=== PATIENT | female | born 1990 | race Two or more races ===

== ENCOUNTER 2018-01-08 12:57 | Emergency (ER) | payer MEDICAID, OTHER ==
[2018-01-08 13:08] VITALS: BP 146/84
[2018-01-08] MEDS ORDERED: DIPHENHYDRAMINE HCL 50 MG CAPSULE PO ONE (13:23)
[2018-01-08] MEDS ORDERED: KETOROLAC TROMETHAMINE INJ/PF 30 MG/1 ML SDV IM ONE (13:23)
[2018-01-08] MEDS ORDERED: PROCHLORPERAZINE EDISYLATE INJ 10 MG/2 ML VIAL IM ONE (13:23)
--- NOTE | 2018-01-08 13:32 | ER Document Report ---
HPI - HPI Pain Level: 2 Notes: Patient is a 27-year-old female with a history of chronic migraines who presents to the ED complaining of a migraine 1 day that is just like her typical migraines. Patient states that she will have light sensitivity and nausea associated which upsets her stomach. Patient states that she has been evaluated by her primary care doctor for her migraines and was told that she just needs to drink more water. Patient states that she has otherwise been eating and drinking without difficulties. She is urinating normally and having normal bowel movements. Patient states that she does feel like she has some acid reflux, but does not take medicine for it. She denies any IV drug use. Denies any drug allergies. Denies any fever, head injury, neck pain, changes in vision/speech/mentation/hearing, URI, sore throat, chest pain, palpitations, syncope, cough, shortness of breath, wheeze, dyspnea, abdominal pain, nausea/ vomiting/diarrhea, urinary retention, dysuria, hematuria, loss of control of bowel or bladder, numbness/tingling, muscle paralysis/weakness, or rash. - ROS Systems Reviewed and Negative: Yes All other systems reviewed and negative Past Medical History - Social History Smoking Status: Unknown if Ever Smoked Family History: Reviewed & Not Pertinent Vertical Provider Document - CONSTITUTIONAL Agree With Documented VS: Yes Notes: PHYSICAL EXAMINATION: GENERAL: Well-appearing, well-nourished and in no acute distress. A&Ox4. Answers questions appropriately. HEAD: Atraumatic, normocephalic. Non-tender. No becker sign EYES: Pupils equal round and reactive to light, extraocular movements intact, sclera anicteric, conjunctiva are normal. No raccoon eyes/entrapment. No nystagmus. ENT: Nares patent and without discharge. oropharynx clear without exudates. No tonsilar hypertrophy or erythema. Moist mucous membranes. No sinus tenderness. NECK: Normal range of motion, supple without lymphadenopathy. No rigidity. No midline tenderness. Spurling negative. LUNGS: Breath sounds clear to auscultation bilaterally and equal. No wheezes rales or rhonchi. HEART: Regular rate and rhythm without murmurs, rubs, gallops. ABDOMEN: Soft, nontender, nondistended abdomen. No guarding, no rebound. No masses appreciated. Normal bowel sounds present. No CVA tenderness bilaterally. Musculoskeletal: Ext b/l: FROM to passive/active. Strength 5+/5. No deficits noted. No bony tenderness of extremities. Extremities: No cyanosis, clubbing, or edema b/l. Peripheral pulses 2+. Capillary refill less than 2 seconds. NEUROLOGICAL: NIH 0. GCS 15. Cranial nerves grossly intact. Normal speech, normal gait. Normal sensory, motor exams. Reflexes 2+ b/l. JOSI's negative. Pronator drift negative. Heel/browning, finger/nose wnl. PSYCH: Normal mood, normal affect. SKIN: Warm, Dry, normal turgor, no rashes or lesions noted. - INFECTION CONTROL TRAVEL OUTSIDE OF THE [place] IN LAST 30 DAYS: No Course - Re-evaluation Re-evalutation: 01/08/18 14:21 Patient is an afebrile, well-hydrated, 27-year-old female who presents to the ED with a headache, suspect typical migraine for her, and suspicions of acid reflux based on her historical report. Vitals are acceptable. PE is otherwise unremarkable. NIH 0, GCS 15, cranial nerves grossly intact. Patient has no significant tachycardia, tachypnea, or hypoxia. She is tolerating p.o. without difficulties. She is playing on her phone without any discomfort as well. Patient was given Toradol and Compazine which improved her headache. Patient states that she is feeling much better. Patient is requesting a work note as well. No other labs or imaging warranted at this time based on H&P. Low suspicion for any acute glaucoma, temporal arteritis, meningitis, intracranial hemorrhage, ischemic stroke, or fracture at this time. Patient is aware that this condition can change from initial presentation and that she needs to monitor symptoms closely for any acute changes. I will send her home with a prescription for Carafate and omeprazole. Recheck with your PCM in 3-5 days. Consider consult with neurology. Return to the ED with any worsening/ concerning symptoms otherwise as reviewed discharge. Patient is in agreement. - Vital Signs Vital signs: Temp Pulse Resp BP Pulse Ox 98.2 F 72 18 146/84 H 99 01/08/18 13:06 01/08/18 13:06 01/08/18 13:06 01/08/18 13:06 01/08/18 13:06 Discharge - Discharge Clinical Impression: Headache Qualifiers: Headache type: unspecified Headache chronicity pattern: acute headache Intractability: not intractable Qualified Code(s): R51 - Headache Condition: Stable Disposition: HOME, SELF-CARE Instructions: Headache ([facility]) Additional Instructions: Rest, Ice Tylenol/ibuprofen as needed Light stretches daily Strength exercises as able Moist heat and massage may help F/u with your PCP in 3-5 days for a recheck Consider consult(s) with Neurology for ongoing/worsening symptoms Return to the ED with any worsening symptoms and/or development of fever, headache, changes in behavior/mentation/vision/speech, chest pain, palpitations , syncope, shortness of breath, trouble breathing, abdominal pain, n/v/d, blood in stool/urine, loss of control of bowel/bladder, urinary retention, muscle weakness/paralysis, saddle anesthesia, numbness/tingling, or other worsening symptoms that are concerning to you. Prescriptions: Omeprazole 20 mg PO DAILY #30 tablet. Sucralfate [Carafate] 1 gm PO QID PRN #420 ml PRN Reason: Forms: Elevated Blood Pressure, Return to Work Referrals: ADRY CONWAY MD [EMERIT[facility]] - Follow up as needed
== END 2018-01-08 14:30 | disposition home or self-care (01) ==
LOC: ER 12:57
DX: R51 Headache (principal)
CPT/HCPCS: 99283; 96372; J1885; J0780

== ENCOUNTER 2018-02-23 10:10 | Emergency (ER) | payer MEDICAID ==
[2018-02-23 10:22] VITALS: BP 124/83
--- NOTE | 2018-02-23 10:43 | ER Document Report ---
ED Flu Like - General Mode of Arrival: Ambulatory Information source: Patient TRAVEL OUTSIDE OF THE [place] IN LAST 30 DAYS: No - General Chief Complaint: Flu Symptoms Stated Complaint: FLU SYMPTOMS Time Seen by Provider: 02/23/18 10:35 Notes: Patient is a 27-year-old female who presents to the emergency department today with complaints of a headache for the last 3 days with associated generalized weakness, generalized body aches, subjective fevers, nasal congestion, and vomiting 1. Patient states she took Excedrin Migraine prior to arrival. Patient denies any sore throat, abdominal pain, or diarrhea. (NEHEMIAS GUERRA) - Related Data Allergies/Adverse Reactions: No Known Allergies Allergy (Verified 02/23/18 10:12) Past Medical History - General Information source: Patient - Social History Smoking Status: Never Smoker Cigarette use (# per day): No Chew tobacco use (# tins/day): No Frequency of alcohol use: None Drug Abuse: None Lives with: Family Family History: Reviewed & Not Pertinent Patient has suicidal ideation: No Patient has homicidal ideation: No Neurological Medical History: Reports: Hx Migraine Surgical Hx: Negative Review of Systems - Review of Systems Constitutional: See HPI, Weakness EENT: See HPI, Nose congestion, Nose discharge, Sinus pressure. denies: Throat pain Cardiovascular: No symptoms reported Respiratory: No symptoms reported Gastrointestinal: denies: Abdominal pain, Diarrhea Genitourinary: No symptoms reported Female Genitourinary: No symptoms reported Musculoskeletal: See HPI, Other - generlized body aches Skin: No symptoms reported Hematologic/Lymphatic: No symptoms reported Neurological/Psychological: See HPI, Headaches -: Yes All other systems reviewed and negative Physical Exam - Vital signs Vitals: Temp Pulse Resp BP Pulse Ox 98.9 F 114 H 14 124/83 97 02/23/18 10:21 02/23/18 10:21 02/23/18 10:21 02/23/18 10:21 02/23/18 10:21 - Notes Notes: PHYSICAL EXAM GENERAL: Alert, interacts well. No acute distress. HEAD: Normocephalic, atraumatic. Tenderness with percussion of frontal sinuses bilaterally. EYES: Pupils equal, round, and reactive to light. Extraocular movements intact. ENT: Oral mucosa moist, tongue midline. Neck is supple. Nares patent, no nasal septal hematoma, TM's intact. Injected posterior oropharynx. NECK: Full range of motion. Supple. Trachea midline. LUNGS: Clear to auscultation bilaterally, no wheezes, rales, or rhonchi. No respiratory distress. HEART: Slightly tachycardic, regular rhythm. No murmurs, gallops, or rubs. ABDOMEN: Soft, non-tender. Non-distended. Bowel sounds present in all 4 quadrants. No guarding, rigidity, or rebound. EXTREMITIES: Moves all 4 extremities spontaneously. Able to curl knees into position without difficulty. NEUROLOGICAL: Alert and oriented x3. Normal speech. PSYCH: Normal affect, normal mood. SKIN: Warm, dry, normal turgor. No rashes or lesions noted. (NEHEMIAS GUERRA) Course - Re-evaluation Re-evalutation: 02/23/18 10:43 Patient is well appearing, able to walk without difficulty, has full range of motion of her neck, able to touch her chin to her chest, able to bring her knees to her chest as well, doubt meningitis at this time. Headache is typical for her, no differences from her usual headache, patient possibly has influenza although that is quite late in the year for this. Offered flu swab versus antibiotics and Zofran for what I suspect is acute bacterial sinusitis. Patient is agreeable to antibiotics for acute bacterial sinusitis, patient does have fairly exquisite tenderness to percussion of her frontal sinuses. Patient will be discharged to home. (BRIANNE ELAINE) - Vital Signs Vital signs: Temp Pulse Resp BP Pulse Ox 98.9 F 114 H 14 124/83 97 02/23/18 10:21 02/23/18 10:21 02/23/18 10:21 02/23/18 10:21 02/23/18 10:21 Discharge - Discharge Clinical Impression: Acute bacterial sinusitis Condition: Stable Disposition: HOME, SELF-CARE Additional Instructions: Sinusitis You have sinusitis, an infection of the sinus cavities of the face. The sinuses are air-filled chambers which open into the inside of the nose. Bacteria and pus fill a sinus, causing pain, drainage, and fever. Sinusitis is treated with antibiotics. Often, expectorants (to thin the sinus mucous) or decongestants (to reduce swelling) are prescribed as well. Healing requires seven to 10 days. Avoid chemical fumes, pollens, dusts, and smoke (especially cigarette smoke ). Keep the air humidified in your bedroom and work area and take plenty of liquids by mouth. This condition can be serious if the infection spreads. If your symptoms worsen, or if you develop severe headache, high fever, stiff neck, or a rash, you must call the doctor or return for re-evaluation. Please use nasal saline rinses such as a NetiPot or NeilMed Sinus Rinses. Please use ibuprofen (Motrin or Advil) 600-800 mg every 8 hours as needed for pain or fever. You may also use acetaminophen (Tylenol) 1000 mg every 4-6 hours as needed for pain or fever. Please be aware that many medications contain acetaminophen, do not exceed a total of 1000 mg of acetaminophen every 6 hours. Prescriptions: Amox Tr/Potassium Clavulanate [Augmentin 875-125 Tablet] 1 tab PO BID 10 Days tablet Ondansetron [Zofran Odt 4 mg Tablet] 1 - 2 tab PO Q4H PRN #15 tab.rapdis PRN Reason: For Nausea/Vomiting Forms: Return to Work Referrals: ORLIN ROTH DO [Primary Care Provider] - Follow up in 3-5 days Scribe Attestation: 02/23/18 15:49 I personally performed the services described in the documentation, reviewed and edited the documentation which was dictated to the scribe in my presence, and it accurately records my words and actions. (BRIANNE ELAINE) Scribe Documentation - Scribe Written by Beba:: Beba Lange, 02/23/2018 1140 acting as scribe for :: Amy
== END 2018-02-23 10:50 | disposition home or self-care (01) ==
LOC: ER 10:10
DX: J01.90 Acute sinusitis, unspecified (principal); B96.89 Other specified bacterial agents as the cause of diseases classified elsewhere; R51 Headache; R53.1 Weakness; R09.81 Nasal congestion; R11.10 Vomiting, unspecified; R00.0 Tachycardia, unspecified
CPT/HCPCS: 99283

== ENCOUNTER 2018-02-24 10:46 | Emergency (ER) | payer MEDICAID ==
--- NOTE | 2018-02-24 11:33 | ER Document Report ---
ED Medical Screen (RME) - General Chief Complaint: Weakness Stated Complaint: BODY ACHES Time Seen by Provider: 02/24/18 11:17 Notes: Patient represents to the emergency department for complaints of neck stiffness and fatigue. She states that since Friday morning she has been having neck stiffness as well as a headache that located in her forehead and wraps around to her neck. Denies any traumas or falls. She states that she suffers from headaches but this is worse than normal and normally her headaches do not involve her neck. Denies any rashes on her body. She has not been out of the country. She was seen yesterday in triage and was diagnosed with sinusitis and provided Augmentin and has taken it as prescribed. She denies any fevers at this time but her neck stiffness is become worse as well as submandibular pain and sore throat. She denies any sinus congestion at this time and no vision changes. I have greeted and performed a rapid initial assessment of this patient. A comprehensive ED assessment and evaluation of the patient, analysis of test results and completion of the medical decision making process will be conducted by additional ED providers. PHYSICAL EXAMINATION: GENERAL: Well-appearing, well-nourished. HEAD: Atraumatic, normocephalic. EYES: Pupils equal round extraocular movements intact, conjunctiva are normal. ENT: Nares patent, mild oropharynx erythema with mild purulence on right tonsil NECK: Pain with active flexion and extension of neck. Pain with palpation of cervical musculature. LUNGS: No respiratory distress Musculoskeletal: Normal range of motion of body less neck exam described above. NEUROLOGICAL: Normal speech, normal gait. PSYCH: Normal mood, normal affect. SKIN: Warm, Dry, normal turgor, no rashes or lesions noted. TRAVEL OUTSIDE OF THE [place] IN LAST 30 DAYS: No - Related Data Allergies/Adverse Reactions: No Known Allergies Allergy (Verified 02/24/18 11:15) Past Medical History - Social History Chew tobacco use (# tins/day): No Frequency of alcohol use: None Drug Abuse: None Neurological Medical History: Reports: Hx Migraine Renal/ Medical History: Denies: Hx Peritoneal Dialysis Physical Exam - Vital signs Vitals: Temp Pulse Resp BP Pulse Ox 98.4 F 90 15 128/86 H 100 02/24/18 10:50 02/24/18 10:50 02/24/18 10:50 02/24/18 10:50 02/24/18 10:50 Course - Vital Signs Vital signs: Temp Pulse Resp BP Pulse Ox 98.4 F 90 15 128/86 H 100 02/24/18 10:50 02/24/18 10:50 02/24/18 10:50 02/24/18 10:50 02/24/18 10:50 Doctor's Discharge - Discharge Referrals: ORLIN ROTH DO [Primary Care Provider] - Follow up as needed
[2018-02-24] MEDS ORDERED: NORMAL SALINE 1000 ML 1,000 ML IV ONE (11:34)
[2018-02-24 12:00] LABS: ABSOLUTE EOSINOPHILS # (AUTO) 0.1 10^3/uL (0.0-0.6); ABSOLUTE LYMPHOCYTES (AUTO) 1.3 10^3/uL (0.5-4.7); ABSOLUTE MONOCYTES (AUTO) 0.5 10^3/uL (0.1-1.4); ABSOLUTE NEUT (AUTO) 7.3 10^3/uL (1.7-8.2); BASOPHILS % (AUTO) 0.4 % (0-2); EOSINOPHILS % (AUTO) 1.1 % (0-6); HEMATOCRIT 41.4 % (36.0-47.0); HEMOGLOBIN 14.2 g/dL (12.0-15.5); LYMPHOCYTES % (AUTO) 14.2 % (13-45); MEAN CORPUSCULAR HEMOGLOBIN 29.4 pg (27.0-33.4); MEAN CORPUSCULAR HGB CONC 34.4 g/dL (32.0-36.0); MEAN CORPUSCULAR VOLUME 86 fl (80-97); MONOCYTES % (AUTO) 5.5 % (3-13); PLATELET COUNT 222 10^3/uL (150-450); RED BLOOD COUNT 4.85 10^6/uL (3.72-5.28); SEGMENTED NEUTROPHILS % (AUTO) 78.8 % (42-78); TOTAL CELLS COUNTED % (AUTO) 100 %; WHITE BLOOD COUNT 9.3 10^3/uL (4.0-10.5)
[2018-02-24 12:17] LABS: ALANINE AMINOTRANSFERASE 22 U/L (9-52); ALBUMIN 4.6 g/dL (3.5-5.0); ALKALINE PHOSPHATASE 85 U/L (38-126); ANION GAP 12 (5-19); ASPARTATE AMINO TRANSFERASE 20 U/L (14-36); BILIRUBIN,DIRECT 0.3 mg/dL (0.0-0.4); BLOOD UREA NITROGEN 14 mg/dL (7-20); CALCIUM 9.9 mg/dL (8.4-10.2); CARBON DIOXIDE 27 mmol/L (22-30); CHLORIDE 105 mmol/L (98-107); GLUCOSE 89 mg/dL (75-110); POTASSIUM 4.2 mmol/L (3.6-5.0); SODIUM 143.5 mmol/L (137-145)
--- NOTE | 2018-02-24 15:16 | ER Document Report ---
ED General - General Chief Complaint: Weakness Stated Complaint: BODY ACHES Time Seen by Provider: 02/24/18 11:17 TRAVEL OUTSIDE OF THE [place] IN LAST 30 DAYS: No - HPI Patient complains to provider of: Weakness body aches ear pain headache Notes: Patient coming in today for the above-stated symptoms. Patient states ongoing for greater than 48 hours. Patient was evaluated in ER yesterday diagnosed with a sinusitis patient was prescribed Augmentin states she is taking 3 doses and has not felt any better therefore came to the ER for further evaluation. Upon my evaluation patient is resting comfortably lying in the left lateral recumbent position sleeping easily arousable. Patient denies any recent travel denies any fevers chills nausea vomiting diarrhea. Patient states her headache hurts in the front and in the back of her neck. Patient also states sore throat bilateral ear pain feeling unwell. Denies any sick contacts. Patient states no relief with Excedrin Migraine - Related Data Allergies/Adverse Reactions: No Known Allergies Allergy (Verified 02/24/18 11:15) Past Medical History - Social History Smoking Status: Never Smoker Chew tobacco use (# tins/day): No Frequency of alcohol use: None Drug Abuse: None Family History: Reviewed & Not Pertinent Patient has suicidal ideation: No Patient has homicidal ideation: No Neurological Medical History: Reports: Hx Migraine Renal/ Medical History: Denies: Hx Peritoneal Dialysis Review of Systems - Review of Systems Constitutional: Other - +. The sore throat or ear pain generalized weakness EENT: No symptoms reported Cardiovascular: No symptoms reported Respiratory: No symptoms reported Gastrointestinal: No symptoms reported Genitourinary: No symptoms reported Female Genitourinary: No symptoms reported Musculoskeletal: No symptoms reported Skin: No symptoms reported Hematologic/Lymphatic: No symptoms reported Neurological/Psychological: No symptoms reported Physical Exam - Vital signs Vitals: Temp Pulse Resp BP Pulse Ox 98.4 F 90 15 128/86 H 100 02/24/18 10:50 02/24/18 10:50 02/24/18 10:50 02/24/18 10:50 02/24/18 10:50 Interpretation: Normal - General General appearance: Appears well, Alert - HEENT Head: Normocephalic, Atraumatic Eyes: Normal Conjunctiva: Normal Cornea: Normal Extraocular movements intact: Yes Eyelashes: Normal Pupils: PERRL Ears: Normal External canal: Normal Tympanic membrane: Normal Sinus: Normal Nasal: Normal Pharynx: Erythema - Mild erythema of the right tonsil no hypertrophy no exudates Neck: Normal - Respiratory Respiratory status: No respiratory distress Chest status: Nontender Breath sounds: Normal Chest palpation: Normal - Cardiovascular Rhythm: Regular Heart sounds: Normal auscultation Murmur: No - Abdominal Inspection: Normal Distension: No distension Bowel sounds: Normal Tenderness: Nontender Organomegaly: No organomegaly - Back Back: Normal, Nontender - Extremities General upper extremity: Normal inspection, Nontender, Normal color, Normal ROM , Normal temperature General lower extremity: Normal inspection, Nontender, Normal color, Normal ROM , Normal temperature, Normal weight bearing. No: Natasha's sign - Neurological Neuro grossly intact: Yes Cognition: Normal Orientation: AAOx4 [place] Coma Scale Eye Opening: Spontaneous [place] Coma Scale Verbal: Oriented [place] Coma Scale Motor: Obeys Commands Emily Coma Scale Total: 15 Speech: Normal Motor strength normal: LUE, RUE, LLE, RLE Sensory: Normal - Psychological Associated symptoms: Normal affect, Normal mood - Skin Skin Temperature: Warm Skin Moisture: Dry Skin Color: Normal Course - Re-evaluation Re-evalutation: 02/24/18 22:28 Laboratory studies are otherwise normal. Patient's physical examination is otherwise benign. Patient's headache distribution is more consistent with a tension headache. Patient was encouraged to use Motrin 600,000 mg of Tylenol 3 times a day. Patient is understanding patient understands to continue her antibiotics will discharge patient home - Vital Signs Vital signs: Temp Pulse Resp BP Pulse Ox 98.6 F 88 16 130/80 H 98 02/24/18 15:28 02/24/18 15:28 02/24/18 15:28 02/24/18 15:28 02/24/18 15:28 - Laboratory Result Diagrams: 02/24/18 11:47 02/24/18 11:47 Laboratory results interpreted by me: 02/24/18 11:47 Seg Neutrophils % 78.8 H Discharge - Discharge Clinical Impression: Acute bacterial sinusitis, Tension headache Condition: Good Disposition: HOME, SELF-CARE Instructions: Sinusitis ([facility]), Tension Headache ([facility]) Additional Instructions: Your laboratory evaluation along with her physical evaluation does not reveal any significant pathology. Your headache is consistent with a tension headache. I highly recommend taking Motrin 600 mg along with Tylenol 650-1000 mg together 3 times a day. Please make sure that you are drinking plenty water to stay well-hydrated. He may also ask your local pharmacist about over-the- counter lidocaine patches he can place a patch on the back your neck prior to sleep initially to aid in some your pain. Please continue the antibiotics that were previously prescribed for you. Take all the tablets do not save any tablets. Not completing her antibiotic prescription can result in resistant bacteria with subsequent infections possibly requiring IV antibiotics and hospitalization Referrals: ORLIN ROTH, [NO LOCAL MD] - Follow up as needed
[2018-02-24 15:29] VITALS: BP 130/80
== END 2018-02-24 15:32 | disposition home or self-care (01) ==
LOC: ER 10:46
DX: G44.209 Tension-type headache, unspecified, not intractable (principal); J01.90 Acute sinusitis, unspecified; B96.89 Other specified bacterial agents as the cause of diseases classified elsewhere; R53.1 Weakness; M79.1 Myalgia
CPT/HCPCS: 99285; 96360; 36415; 87070; 87880; 84702; 85025; 87077; 80053; J7030

== ENCOUNTER 2018-05-01 15:22 | Emergency (ER) | payer MEDICAID ==
[2018-05-01 15:53] VITALS: BP 125/83
--- NOTE | 2018-05-01 17:10 | ER Document Report ---
ED Medical Screen (RME) - General TRAVEL OUTSIDE OF THE [place] IN LAST 30 DAYS: No - General Chief Complaint: Flank Pain Stated Complaint: BACK PAIN Time Seen by Provider: 05/01/18 16:12 - Related Data Allergies/Adverse Reactions: No Known Allergies Allergy (Verified 05/01/18 16:13) Past Medical History Neurological Medical History: Reports: Hx Migraine Renal/ Medical History: Denies: Hx Peritoneal Dialysis Psychiatric Medical History: Reports: Hx Depression - Vital signs Vitals: Temp Pulse Resp BP Pulse Ox 98.1 F 66 16 125/83 98 05/01/18 15:52 05/01/18 15:52 05/01/18 15:52 05/01/18 15:52 05/01/18 15:52 Course - Re-evaluation Re-evalutation: 05/01/18 20:15 27-year-old female sent for evaluation from an outside physician's office after undergoing treatment with Toradol for pain and urinalysis. She has had left- sided flank pain with some dysuria and associated nausea she notes that she has had nephrolithiasis in the past is uncertain whether or not she is ever required instrumentation of the size thereof. She has not had one in several years. Examination she does have symptoms suggestive of potentially underlying nephrolithiasis though right now she is not in any extremities. Her symptoms are greatly improved after demonstration of Toradol will repeat urinalysis and obtain CT stone protocol. Patient require further evaluation reassessment. Upon attempting to reassess patient she had been transported the main emergency department she has not obtained her urinalysis yet or her CT imaging therefore we will plan to transition her care. (FREDERICK BULLOCK) - Vital Signs Vital signs: Temp Pulse Resp BP Pulse Ox 98.1 F 66 16 125/83 98 05/01/18 15:52 05/01/18 15:52 05/01/18 15:52 05/01/18 15:52 05/01/18 15:52 - Laboratory Laboratory results interpreted by me: 05/01/18 16:33 Urine Protein 30 H Urine Ketones TRACE H Urine Blood MODERATE H Urine Urobilinogen 2.0 H Doctor's Discharge - Discharge Clinical Impression: Left ureter stone Condition: Stable Disposition: HOME, SELF-CARE Additional Instructions: Note: Rest, drink plenty of fluids, take ibuprofen for pain. Take Percocet for pain not relieved with the ibuprofen. See the narcotic instructions below. Take Zofran for nausea. Take Keflex which is an antibiotic for the urine. Although your urine does not show in a UTI, you do have some bacteria without white cells. This is more prophylactic at this point. Return to the emergency room for any worsening pain, fever (temperature greater than 100.4) vomiting, not tolerating fluids or any concerns getting worse. Otherwise, it may take a week or 2 to pass the stone. It is recommended that you follow-up with a urologist: Call the office on Friday and tell them you are in the emergency room with an 8 mm stone in the left UPJ and the ER doctor wanted you seen in a few days in the urology office. Bring a copy of the CT on disc as well as the formal report of the study with you when you see the urologist. [facility] Office [address] [place], [place] [phone] [place] [facility] [address]. [place], [place] [phone] The pain medicine you're taking prescribed as a narcotic. There are several important things you should know about this medicine: 1. This medicine contains Tylenol: It is important that you do not take Tylenol (or acetaminophen) while on this medicine. Tylenol is metabolized by the liver and taking too much Tylenol (acetaminophen) can lay to liver damage and even liver failure. 2. Taking narcotics for too long can lead to physical and mental dependence. Take this medicine only if really needed and in the lowest quantity to achieve pain relief. 3. Do not drink alcohol while on this medicine. Alcohol interacts with narcotics and the combination can be dangerous. 4. Do not drive or operate machinery while on this medicine. 5. Narcotics do cause constipation, so drink plenty of fluids and daily stool softeners. Prescriptions: Cephalexin Monohydrate [Keflex 500 mg Capsule] 500 mg PO Q6H 5 Days capsule Ondansetron HCl [Zofran 4 mg Tablet] 1 - 2 tab PO Q4H PRN #10 tablet PRN Reason: Oxycodone HCl/Acetaminophen [Percocet 5-325 mg Tablet] 1 - 2 tab PO ASDIR PRN # 25 tablet PRN Reason: Tamsulosin HCl [Flomax 0.4 mg Cap.sr] 0.4 mg PO DAILY #7 cap.sr.24h Forms: Return to Work Referrals: JABARI BROWN MD [Primary Care Provider] - Follow up as needed
[2018-05-01 17:38] LABS: APPEARANCE,URINE TURBID; BILIRUBIN,URINE NEGATIVE (NEGATIVE); COLOR,URINE YELLOW; GLUCOSE, URINE NEGATIVE (NEGATIVE); KETONES,URINE TRACE mg/dL (NEGATIVE); LEUKOCYTE ESTERASE,URINE NEGATIVE (NEGATIVE); NITRITE,URINE NEGATIVE (NEGATIVE); PROTEIN,URINE 30 mg/dL (NEGATIVE); URINE SPECIFIC GRAVITY 1.029
--- NOTE | 2018-05-01 18:53 | RADIOLOGY REPORT (SQ) ---
EXAM DESCRIPTION: CT LTD RENAL STONE PROTOCOL ON COMPLETED DATE/TIME: 05/01/2018 6:40 pm REASON FOR STUDY: right flank pain COMPARISON: None. TECHNIQUE: CT scan of the abdomen and pelvis performed without intravenous or oral contrast. Images reviewed with lung, soft tissue, and bone windows. Reconstructed coronal and sagittal MPR images revi ewed. All images stored on PACS. All CT scanners at this facility use dose modulation, iterative reconstruction, and/or weight based d osing when appropriate to reduce radiation dose to as low as reasonably achievable (ALARA). [facility]: Dose Right [facility]: CareDose [facility]: Dose Right [facility]: Teradose 4D [facility]: [employer] RADIATION DOSE: mGy. LIMITATIONS: None. FINDINGS: LOWER CHEST: No significant findings. No nodules or infiltrates. NON-CONTRASTED LIVER, SPLEEN, ADRENALS: Evaluation limited by lack of IV contrast. No identified sign ificant masses. PANCREAS: No masses. No peripancreatic inflammatory changes. GALLBLADDER: No identified stones by CT criteria. No inflammatory changes to suggest cholecystitis. RIGHT KIDNEY AND URETER: No suspicious masses. Assessment limited by lack of IV contrast. There are some small nonobstructing intrarenal calculi. No hydronephrosis or hydroureter. LEFT KIDNEY AND URETER: No suspicious masses. Assessment limited by lack of IV contrast. There are some small nonobstructing intrarenal calculi. There is an 8 mm stone at the UPJ. Mild hydronephros is. AORTA AND RETROPERITONEUM: No aneurysm. No retroperitoneal masses or adenopathy. BOWEL AND PERITONEAL CAVITY: No obvious masses or inflammatory changes. No free fluid. APPENDIX: Normal. PELVIS, BLADDER, AND ABDOMINAL WALL:No abnormal masses. No free fluid. Bladder normal. BONES: No significant findings. OTHER: No other significant finding. IMPRESSION: 8 mm calculus at the left UPJ. Mild hydronephrosis. Small nonobstructing intrarenal ca lculi bilaterally. COMMENT: Quality ID # [id number]: Final reports with documentation of one or more dose reduction techniques (e.g., Automated exposure control, adjustment of the mA and/or kV according to patient size, use of iterative reconstruction technique) TECHNICAL DOCUMENTATION: JOB ID: [id number] [employer]- All Rights Reserved Reading location - IP/workstation name: [email or web address]
[2018-05-01] MEDS ORDERED: TAMSULOSIN HCL 0.4 MG CAP.SR.24H PO ONE (19:19)
--- NOTE | 2018-05-02 00:13 | ER Document Report ---
ED General - General Chief Complaint: Flank Pain Stated Complaint: BACK PAIN Time Seen by Provider: 05/01/18 16:12 Mode of Arrival: Ambulatory Information source: Patient Notes: 27-year-old female with a history of kidney stones who presents to the emergency room with left flank pain for 2 days. She has had some blood in the urine. She denies any fever, chills, nausea, vomiting. TRAVEL OUTSIDE OF THE [place] IN LAST 30 DAYS: No - HPI Onset: Last week Onset/Duration: Gradual Quality of pain: Dull Severity: Moderate Pain Level: 2 Associated symptoms: denies: Chest pain, Fever, Shortness of breath Exacerbated by: Denies Relieved by: Denies Similar symptoms previously: Yes Recently seen / treated by doctor: No - Related Data Allergies/Adverse Reactions: No Known Allergies Allergy (Verified 05/01/18 16:13) Past Medical History - General Information source: Patient - Social History Smoking Status: Unknown if Ever Smoked Cigarette use (# per day): No Chew tobacco use (# tins/day): No Frequency of alcohol use: None Drug Abuse: None Lives with: Family Family History: Reviewed & Not Pertinent Patient has suicidal ideation: No Patient has homicidal ideation: No - Past Medical History Cardiac Medical History: Reports: None Pulmonary Medical History: Reports: None Neurological Medical History: Reports: Hx Migraine Renal/ Medical History: Reports: Hx Kidney Stones. Denies: Hx Peritoneal Dialysis Malignancy Medical History: Reports: None GI Medical History: Reports: None Musculoskeletal Medical History: Reports None Skin Medical History: Reports None Psychiatric Medical History: Reports: Hx Depression Traumatic Medical History: Reports: None Infectious Medical History: Reports: None Past Surgical History: Reports: None Review of Systems - Review of Systems Constitutional: denies: Chills, Fever EENT: No symptoms reported Cardiovascular: No symptoms reported Respiratory: No symptoms reported Gastrointestinal: denies: Abdomen distended, Abdominal pain Genitourinary: See HPI, Flank pain. denies: Burning, Frequency Female Genitourinary: No symptoms reported Musculoskeletal: No symptoms reported Skin: No symptoms reported Hematologic/Lymphatic: No symptoms reported Neurological/Psychological: No symptoms reported Physical Exam - Vital signs Vitals: Temp Pulse Resp BP Pulse Ox 98.1 F 66 16 125/83 98 05/01/18 15:52 05/01/18 15:52 05/01/18 15:52 05/01/18 15:52 05/01/18 15:52 Notes: Physical exam: GENERAL: 27-year-old female, alert and oriented 3. She does appear comfortable. HEAD: Atraumatic, normocephalic. EYES: Pupils equal round and reactive to light, extraocular movements intact, sclera anicteric, conjunctiva are normal. ENT: TMs normal, nares patent, oropharynx clear without exudates. Moist mucous membranes. NECK: Normal range of motion, supple without obvious mass or JVD. LUNGS: Breath sounds clear to auscultation bilaterally and equal. No wheezes rales or rhonchi. HEART: Regular rate and rhythm without murmurs, rubs or gallops. ABDOMEN: Soft, normoactive bowel sounds. No tenderness to palpation. No guarding, no rebound. No masses appreciated. Left flank: Patient does have CVA tenderness. Her abdomen is quite soft. EXTREMITIES: Normal range of motion, no pitting or edema. No clubbing or cyanosis. NEUROLOGICAL: Cranial nerves II through XII grossly intact. Normal speech, moving all extremities. PSYCH: Normal mood, normal affect. SKIN: Warm, Dry, normal turgor, no rashes or lesions noted. Course - Re-evaluation Re-evalutation: 05/02/18 00:17 Patient has not required any IV fluids. She is been quite comfortable. Her pain was controlled by Toradol at the urgent care center. She has been given some Flomax. I have given her a referral to a urologist, pain medicine, Flomax prescription and an antibiotic. Patient does not have evidence of a urine tract infection at this time. She does have some bacteria in the urine without white cells. So the antibiotics of prophylactic. - Vital Signs Vital signs: Temp Pulse Resp BP Pulse Ox 98.1 F 66 16 125/83 98 05/01/18 15:52 05/01/18 15:52 05/01/18 15:52 05/01/18 15:52 05/01/18 15:52 - Laboratory Laboratory results interpreted by me: 05/01/18 16:33 Urine Protein 30 H Urine Ketones TRACE H Urine Blood MODERATE H Urine Urobilinogen 2.0 H - Diagnostic Test Radiology reviewed: Image reviewed, Reports reviewed - CT shows an 8 mm stone in the UPJ with mild hydronephrosis. Discharge - Discharge Clinical Impression: Left ureter stone Condition: Stable Disposition: HOME, SELF-CARE Additional Instructions: Note: Rest, drink plenty of fluids, take ibuprofen for pain. Take Percocet for pain not relieved with the ibuprofen. See the narcotic instructions below. Take Zofran for nausea. Take Keflex which is an antibiotic for the urine. Although your urine does not show in a UTI, you do have some bacteria without white cells. This is more prophylactic at this point. Return to the emergency room for any worsening pain, fever (temperature greater than 100.4) vomiting, not tolerating fluids or any concerns getting worse. Otherwise, it may take a week or 2 to pass the stone. It is recommended that you follow-up with a urologist: Call the office on Friday and tell them you are in the emergency room with an 8 mm stone in the left UPJ and the ER doctor wanted you seen in a few days in the urology office. Bring a copy of the CT on disc as well as the formal report of the study with you when you see the urologist. [facility] Urology [facility] Office [address] [place], [place] [phone] [place] [facility] [address]. [place], [place] [phone] The pain medicine you're taking prescribed as a narcotic. There are several important things you should know about this medicine: 1. This medicine contains Tylenol: It is important that you do not take Tylenol (or acetaminophen) while on this medicine. Tylenol is metabolized by the liver and taking too much Tylenol (acetaminophen) can lay to liver damage and even liver failure. 2. Taking narcotics for too long can lead to physical and mental dependence. Take this medicine only if really needed and in the lowest quantity to achieve pain relief. 3. Do not drink alcohol while on this medicine. Alcohol interacts with narcotics and the combination can be dangerous. 4. Do not drive or operate machinery while on this medicine. 5. Narcotics do cause constipation, so drink plenty of fluids and daily stool softeners. Prescriptions: Cephalexin Monohydrate [Keflex 500 mg Capsule] 500 mg PO Q6H 5 Days capsule Ondansetron HCl [Zofran 4 mg Tablet] 1 - 2 tab PO Q4H PRN #10 tablet PRN Reason: Oxycodone HCl/Acetaminophen [Percocet 5-325 mg Tablet] 1 - 2 tab PO ASDIR PRN # 25 tablet PRN Reason: Tamsulosin HCl [Flomax 0.4 mg Cap.sr] 0.4 mg PO DAILY #7 cap.sr.24h Forms: Return to Work Referrals: JABARI BROWN MD [Primary Care Provider] - Follow up as needed
== END 2018-05-01 20:17 | disposition home or self-care (01) ==
LOC: ER 15:22
DX: N13.2 Hydronephrosis with renal and ureteral calculous obstruction (principal); R31.9 Hematuria, unspecified
CPT/HCPCS: 99284; 87086; 81025; 81001; 76380; J3490

== ENCOUNTER → 2019-03-18 | Outpatient (CLI) | payer MEDICAID ==
--- NOTE | 2019-03-18 10:40 | RADIOLOGY REPORT (SQ) ---
EXAM DESCRIPTION: ANKLE LEFT COMPLETE COMPLETED DATE/TIME: 03/18/2019 10:32 am REASON FOR STUDY: ACUTE LEFT ANKLE PAIN M25.572 PAIN IN LEFT ANKLE AND JOINTS OF LEFT FOOT COMPARISON: None. NUMBER OF VIEWS: Three views. TECHNIQUE: AP, lateral, and oblique without weight bearing radiographic images acquired of the left ankle. LIMITATIONS: None. FINDINGS: MINERALIZATION: Normal. BONES: No acute fracture or dislocation. No worrisome bone lesions. No significant osteophytes. JOINTS: No effusions. SOFT TISSUES: No soft tissue swelling. No foreign body. OTHER: No other significant finding. IMPRESSION: NO SIGNIFICANT FINDING IN THE LEFT ANKLE. NO EXPLANATION FOR PAIN. TECHNICAL DOCUMENTATION: JOB ID: [id number] [employer]- All Rights Reserved Reading location - IP/workstation name: [email or web address]
== END ==
LOC: OD 10:04
PROVIDERS: ATTEND Nurse Practitioner Family
DX: M25.572 Pain in left ankle and joints of left foot (principal)

== ENCOUNTER 2019-04-11 20:03 | Emergency (ER) | payer MEDICAID ==
[2019-04-11 20:27] VITALS: BP 146/90
--- NOTE | 2019-04-11 21:03 | RADIOLOGY REPORT (SQ) ---
EXAM DESCRIPTION: Left ankle RadLex: XR ANKLE 3 OR MORE VIEWS Views: 3 CLINICAL HISTORY: 28 years Female, bone tenderness COMPARISON: None. FINDINGS: Negative for acute fracture, dislocation, or radiopaque foreign body. IMPRESSION: 1. No acute findings.
[2019-04-11] MEDS ORDERED: IBUPROFEN 800 MG TABLET PO ONE (21:04)
--- NOTE | 2019-04-11 21:07 | ER Document Report ---
HPI - HPI Patient complains to provider of: left ankle pain Onset: This afternoon Onset/Duration: Persistent Quality of pain: Achy, Throbbing Severity: Severe Pain Level: 4 Context: This 28-year-old female presents emergency department with complaints of left ankle pain after stepping in hole and rolling her ankle. She reports pain when she walks. Reports recent injury to the left ankle recently when she was at work. She has her own crutches and Jesus wrap. Associated Symptoms: None Exacerbated by: Movement, Walking Relieved by: Denies Similar symptoms previously: Yes Recently seen / treated by doctor: Yes - REPRODUCTIVE Reproductive: DENIES: : - MUSCULOSKELETAL Musculoskeletal: REPORTS: Extremity pain - left ankle Past Medical History - General Information source: Patient - Social History Smoking Status: Never Smoker Cigarette use (# per day): No Frequency of alcohol use: None Drug Abuse: None Lives with: Family Family History: Reviewed & Not Pertinent Patient has suicidal ideation: No Patient has homicidal ideation: No Neurological Medical History: Reports: Hx Migraine Renal/ Medical History: Reports: Hx Kidney Stones. Denies: Hx Peritoneal Dialysis Psychiatric Medical History: Reports: Hx Depression Vertical Provider Document - CONSTITUTIONAL Agree With Documented VS: Yes Exam Limitations: No Limitations General Appearance: WD/WN, Mild Distress - winces with palpation to ankle - INFECTION CONTROL TRAVEL OUTSIDE OF THE [place] IN LAST 30 DAYS: No - HEENT HEENT: Atraumatic, Normocephalic - NECK Neck: Supple - RESPIRATORY Respiratory: No Respiratory Distress - MUSCULOSKELETAL/EXTREMETIES Musculoskeletal/Extremeties: Tender - Left ankle laterally tender to palpation slight swelling good pedal pulse good cap refill no ecchymosis no obvious deformity - NEURO Level of Consciousness: Awake, Alert, Appropriate Motor/Sensory: No Motor Deficit - DERM Integumentary: Warm, Dry Course - Re-evaluation Re-evalutation: 04/11/19 21:04 This 28-year-old female presents emergency department left ankle pain after she stepped in hole and rolled her ankle. Reports she recently hurt her ankle at work. She has her own crutches and Jesus wrap. Did not take anything for pain prior to arrival. Reports pain with walking. 04/11/19 21:05 Ankle X-Ray 04/11/19 00:00 IMPRESSION: 1. No acute findings. 04/11/19 21:05 Negative x-ray. Patient was instructed. Patient was also instructed follow-up with orthopedics for continued pain rest ice elevate. Take Motrin for the pain. She verbalized understanding to all instructions. Patient has her own Jesus wrap and crutches. - Vital Signs Vital signs: Temp Pulse Resp BP Pulse Ox 97.8 F 110 H 18 146/90 H 99 04/11/19 20:24 04/11/19 20:24 04/11/19 20:24 04/11/19 20:24 04/11/19 20:24 - Diagnostic Test Radiology reviewed: Image reviewed, Reports reviewed Discharge - Discharge Clinical Impression: Left ankle injury Qualifiers: Encounter type: initial encounter Qualified Code(s): S99.912A - Unspecified injury of left ankle, initial encounter Condition: Stable Disposition: HOME, SELF-CARE Instructions: Jesus Wrap ([facility]), Use of Crutches ([facility]), Use of Lryu-Nme-Ucuqjlu Ibuprofen ([facility]), Ice & Elevation ([facility]) Additional Instructions: *You have been evaluated for left ankle injury *Maintain your jesus wrap, use the crutches *Rest/Ice/Elevate your ankle *Follow up with orthopedics for recheck within one week *Take ibuprfone as indicated *Return to ED for worsening condition, changes, needs Forms: Return to Work Referrals: ANDRZEJ CHAPA FNP-C [Primary Care Provider] - Follow up in 3-5 days
== END 2019-04-11 21:08 | disposition home or self-care (01) ==
LOC: ER 20:03
DX: S99.912A Unspecified injury of left ankle, initial encounter (principal); M25.572 Pain in left ankle and joints of left foot; M25.472 Effusion, left ankle; X50.0XXA Overexertion from strenuous movement or load, initial encounter
CPT/HCPCS: 99283; 73610; J3490

== ENCOUNTER → 2020-04-02 | Outpatient (CLI) | payer MEDICAID ==
--- NOTE | 2020-04-02 13:06 | RADIOLOGY REPORT (SQ) ---
EXAM DESCRIPTION: HAND LEFT 3 VIEWS IMAGES COMPLETED DATE/TIME: 04/02/2020 12:29 pm REASON FOR STUDY: CAUGHT IN CAR DOOR/PAIN 8 SWELLING COMPARISON: None. EXAM PARAMETERS: NUMBER OF VIEWS: Three views. TECHNIQUE: AP, lateral and oblique radiographic images acquired of the left hand. LIMITATIONS: None. FINDINGS: MINERALIZATION: Normal. BONES: No acute fracture or dislocation. No worrisome bone lesions. JOINTS: No effusion. SOFT TISSUES: No significant soft tissue swelling. No radiopaque foreign body. OTHER: No other significant finding. IMPRESSION: NO FRACTURE. TECHNICAL DOCUMENTATION: JOB ID: [id number] [email or web address]- All Rights Reserved Reading location - IP/workstation name: [email or web address]
== END ==
LOC: RAD 12:03
PROVIDERS: ATTEND Nurse Practitioner Family
DX: M79.642 Pain in left hand (principal)